=== PATIENT | male | born 1960 | race Caucasian/White ===

== ENCOUNTER 2024-06-30 13:19 | Emergency (ER) | payer MEDICARE, SELFPAY ==
[2024-06-30] VITALS (9 sets, daily range): BP systolic 148–185; BP diastolic 87–123; BMI 34.8
[2024-06-30 14:05] LABS: % Basophils 0.6 % (0-2); % Eosinophils 1.4 % (0-6); % Immature Granulocytes 0.4 % (0-0.5); % Lymphocytes 23.1 % (20.5-51.1); % Monocytes 5.4 % (1.7-9.3); % Neutrophils 69.1 % (42.2-75.2); Absolute Basophils 0.1 10^3/uL (0-0.2); Absolute Eosinophils 0.1 10^3/uL (0-0.7); Absolute Lymphocytes 2.4 10^3/uL (1.2-3.4); Absolute Monocytes 0.6 10^3/uL (0.1-0.6); Absolute Neutrophils 7.1 10^3/uL (1.4-6.5); Hematocrit 47.8 % (39.0-52.0); Hemoglobin 16.3 g/dL (13.0-18.0); Mean Corp Hgb Conc. 34.1 g/dL (33.0-37.0); Mean Corpuscular Hgb 31.7 pg (27.0-31.0); Mean Platelet Volume 9.5 fL (7.4-10.4); Nucleated Red Blood Cells % 0 % (-); Platelet Count 261 10^3/uL (130-400); Red Blood Cell Count 5.14 10^6/uL (4.70-6.10); Red Cell Dist. Width 12.3 % (11.5-14.5); White Blood Cell Count 10.2 10^3/uL (4.8-10.8)
[2024-06-30 14:16] LABS: ALT (SGPT) 33 U/L (0-50); AST (SGOT) 24 U/L (17-59); Albumin 5.2 g/dl (3.5-5.0); Alkaline Phosphatase 54 U/L (38-126); Blood Urea Nitrogen 13 mg/dl (9-20); Calcium 10.2 mg/dl (8.4-10.2); Carbon Dioxide 28 mmol/L (22-30); Chloride 97 mmol/L (98-107); Glucose 108 mg/dl (70-99); Potassium 4.2 mmol/L (3.5-5.1); Sodium 135 mmol/L (135-145); Total Bilirubin 1.2 mg/dl (0.2-1.3); Total Protein 7.8 g/dl (6.3-8.2); eGFR > 60.00
--- NOTE | 2024-06-30 19:27 | ED.GENMED ---
History of Present Illness
General
Chief Complaint: Dizziness
Source: patient and spouse
Exam Limitations: none
Time Seen by Provider: 06/30/24 17:36
Nursing documentation reviewed up to this point in time: agreed with
History of Present Illness
History of Present Illness:
64-year-old male with a past medical history of hypertension, multiple prior abdominal surgeries who presents to the emergency department for evaluation of ringing in the left ear and dizziness, also hypertension. Patient reports that for the past
week he has been having intermittent ringing and aching in the left ear. He says that he has had occasional very mild dizziness over that period. Today he had a very intense episode of dizziness to the point that he thought he might fall down or
pass out that caused him to sit down on the ground. This prompted him to come to the emergency to be evaluated. Interestingly, dizzy episode today was not associated with ear ringing unlike symptoms earlier this week. He describes dizziness as
spinning sensation. He says symptoms have resolved and he is now asymptomatic here in the ER. He denies any change in his vision or speech. He denies any headache. He denies any neck pain. He denies any chest pain or abdominal pain. No nausea
or vomiting. He did not have any falls or trauma. He has not had any redness or drainage from the ear or trauma. He does note that his blood pressure has been elevated and he thought his symptoms could potentially be from elevated blood pressure;
he notes that he previously was on blood pressure medication (chart review shows he was previously on amlodipine 5 mg daily) but he says that at one point his insurance lapsed and did not cover it and he never followed up and has been noncompliant
for well over a year. He does exercise regularly and notes that he has been trying to maintain a low-salt diet.
Past History
Past History
ED Past Medical History: Other (diverticulosis)
ED Past Surgical History: Bowel resection
Social History
Tobacco: Smoker (1/2ppd)
Alcohol: Occasional
Drug: None
Personal:
Living: with family
Employment: Not employed
Family History
Family History: Other (n/c)
Review of Systems
Review of Systems
All Other Systems: ROS reviewed and negative except as documented in HPI and ROS
Constitutional: Denies fever or chills
EENT: Reports other (Tinnitus)
Respiratory: Denies cough or trouble breathing
Cardiac: Denies chest pain
ABD/GI: Denies abdominal pain, nausea or vomiting
: Denies flank pain
Musculoskeletal: Denies neck pain or back pain
Neurological: Reports dizzy; Denies headache, weakness or numbness
Phy Exam
Physical Exam
Physical Exam:
General: Awake, alert, oriented x3; no acute distress
Head: Normocephalic, atraumatic
Eyes: Conjunctiva normal, EOMI without nystagmus, pupils equal round and reactive to light bilaterally
Ears: Right TM clear, left TM erythematous slightly retracted
Throat: Airway intact, handling secretions
Neck: Trachea midline, supple without meningismus
Lungs: Clear to auscultation bilaterally, no wheezing, rales, rhonchi
Heart: Regular rate and rhythm, no murmurs, gallops, or rubs
Abd: Soft, non distended, nontender; scarring from prior surgery
Neuro: Cranial nerves intact 2 through 12, speech fluid with no dysarthria or aphasia, no limb ataxia, motor and sensory function intact proximally and distally in the upper and lower extremities
Extremities: No edema in extremities, equal pulses in all extremities
Scores
Heart Failure Risk
Heart Failure Risk Score: Not Applicable
Heart Score for Chest Pain Patients
STEMI patient?: Not applicable
Withdrawal Assessment of Alcohol
Withdrawal Assessment Completed?: Not applicable
Course
Orders/Labs/Results
Orders:
Orders
06/30/24 13:32
Electrocardiogram (*1) Urgent
Reason for Study: Vertigo / Dizzy
EKG- Treatment ONCE
06/30/24 13:43
Complete Blood Count/With Diff Urgent
Comprehensive Metabolic Panel Urgent
06/30/24 19:05
CT Head W/o Iv Contrast Urgent
Comment:
Reason For Exam: dizziness, severe HTN
06/30/24 19:28
Amoxicillin 875 mg/Clav 125 mg [Augmentin 875 mg/125 mg] 1 tablet PO NOW STA
06/30/24 19:29
Amlodipine [Norvasc] 5 mg PO ONCE ONE
06/30/24 19:51
Troponin I Stat
Abnormal Lab Results
06/30/24
13:43
MCH 31.7 H pg
(27.0-31.0)
Absolute Neuts (auto) 7.1 H 10^3/uL
(1.4-6.5)
Chloride 97 L mmol/L
(98-107)
Glucose 108 H mg/dl
(70-99)
Albumin 5.2 H g/dl
(3.5-5.0)
06/30/24 13:43
06/30/24 13:43
Vital Signs
Initial and Last Documented VS:
Initial Vital Signs
Temp Pulse Resp BP Pulse Ox
36.3 C 83 18 183/123 97
06/30/24 13:28 06/30/24 13:28 06/30/24 13:28 06/30/24 13:28 06/30/24 13:28
Last Documented Vital Signs
Temp Pulse Resp BP Pulse Ox
36.3 C 85 13 157/100 93
06/30/24 13:28 06/30/24 20:15 06/30/24 20:15 06/30/24 20:00 06/30/24 20:15
MDM/Problems Addressed
Differential Diagnosis Includes:
Dizziness: Peripheral vertigo (viral labyrinthitis, otitis, BPPV), hypertensive crisis, stroke/brain bleed
Ear pain: Otitis media, eustachian tube dysfunction, viral URI
MDM/Problems Addressed:
64-year-old male presents for evaluation of dizziness and tinnitus in the left ear; also has noted elevated blood pressures recently. He was markedly hypertensive in triage to 183/123�blood pressure greatly improved to 150/87 on my assessment.
Rest of vitals normal. Physical exam as above�notably left TM is erythematous and retracted and this is the side where he had tinnitus and aching. My suspicion is that inner ear issue is the etiology of his dizziness and that his symptoms are not
driven by hypertension but rather hypertension may be at least in part related to his symptoms. He is currently completely asymptomatic. He had labs sent in triage including a CBC and a CMP which were unremarkable. Added EKG and a troponin with
severe hypertension. Will send for CT head and an abundance of caution given his marked hypertension. Continue to monitor and reassess after the above�I do think he should be treated for otitis with amoxicillin; will also provide dose of
amlodipine and restart him on this medication going forward.
CT head negative for any acute pathology. Troponin negative. Blood pressure 150s, patient asymptomatic and well-appearing. Stable for discharge we will start on Augmentin for suspected acute otitis which is likely triggering vertiginous symptoms;
will restart on amlodipine for hypertension. Patient will follow-up with PCP as an outpatient. He feels comfortable with this plan. Spoke about return precautions all questions answered.
Chronic conditions affecting care:
Hypertension
Acute Exacerbation and/or Progression of Chronic Illness:
Acutely hypertensive improved without intervention�restarted amlodipine
Acute Exacerbation and/or Progression of Chronic Illness: HTN
*Radiology
Radiology exam reviewed: radiology read reviewed
*Pulse Oximetry
Patient hypoxic: no
*EKG
Interpreted by ED Provider?: Yes
Heart Rate: 82
Rate: normal
Rhythm: sinus
[place]: left axis deviation
Interval: normal interval
QRS Pattern: normal QRS
Ischemia: no ischemia
*Critical Care Note
Total Time (30-74mins, 75-104mins- exclusive of procedures): Not Applicable
Data Reviewed
Review of Other/Old Records Reveals: Labs and Records
Source: patient, records and spouse
ED Attending Note
-
Portions of this chart may have been created with voice recognition software.� Occasional wrong word or��sound alike� substitutions may have occurred due to the inherent limitations of voice recognition software.
Discharge Plan
Departure
Patient with high blood pressure during this ER visit?: Yes
Discharge Problem:
Otitis media, Vertigo, Hypertension
Instructions: Vertigo (a type of dizziness), Ear infections in adults, BLOOD PRESSURE
Prescriptions:
New
amlodipine 5 mg tablet
5 mg PO DAILY Qty: 30 0RF
amoxicillin-pot clavulanate 875-125 mg tablet
1 tab PO BID Qty: 14 0RF
No Action
aspirin 81 mg Tablet,Delayed Release (Dr/Ec)
81 mg PO DAILY
acetaminophen [acetaminophen] 325 mg tablet
650 mg PO Q4HPRN PRN (Reason: mild pain) Qty: 1 0RF
ibuprofen 200 mg tablet
400 - 600 mg PO Q6HPRN PRN (Reason: moderate pain) Qty: 1 0RF
Referrals:
Mali Fernandez PA [Family Provider] - Follow up in 2-3 days
Activity Restrictions/Additional Instructions:
Thank you for visiting the Emergency Department at [facility].
1. Please schedule a follow up appointment as directed. Call first thing tomorrow morning to make an appointment.
2. If indicated, please take your medications as instructed and indicated on discharge paperwork.
3. If any of your symptoms do not improve, or persist, or become more severe within 6-12 hours, please return to the emergency department for further care.
4. Please return to the emergency department if you develop a headache, neck pain/stiffness, fever greater than 100.4F, chest pain, shortness of breath, persistent nausea, vomiting, slurred speech, difficulty walking, numbness/tingling, weakness,
signs of infection or any other symptoms that are worrisome to you.
Please call [phone] if you have any questions.
Interventions
Interventions:
*Risk Screen - Suicide Last Done: 06/30/24 13:28
*General Assessment Last Done: 06/30/24 13:28
*Neglect/Abuse Screening Last Done: 06/30/24 13:28
ED- Fall Risk Assessment Last Done: 06/30/24 17:31
ED- Neurological Assessment Last Done: 06/30/24 17:31
ED- Cardiac Assessment Last Done: 06/30/24 17:31
ED Swallowing Screen Last Done: 06/30/24 17:31
Discharge Date and Time
Print Language: ESTONIAN
[2024-06-30] MEDS: NORVASC 5 MG PO (19:37)
[2024-06-30] MEDS: AUGMENTIN 875 MG/125 MG 1 TABLET PO (19:37)
[2024-06-30 20:25] LABS: Troponin I < 0.012 ng/ml
== END 2024-06-30 21:01 | disposition home or self-care (01) ==
LOC: EMR 13:19
PROVIDERS: Emergency Medicine; EMERGENCY PHYSICIAN Emergency Medicine; FAMILY PHYSICIAN Physician Assistant
DX: R42 Dizziness and giddiness (principal); H66.92 Otitis media, unspecified, left ear; I10 Essential (primary) hypertension; Z91.148 Patient's other noncompliance with medication regimen for other reason; K57.90 Diverticulosis of intestine, part unspecified, without perforation or abscess without bleeding; F41.9 Anxiety disorder, unspecified; F17.210 Nicotine dependence, cigarettes, uncomplicated; Z98.0 Intestinal bypass and anastomosis status
CPT/HCPCS: 99284; 70450; 80053; 84484; 85025; 93005